=== PATIENT | female | born 1990 | race Caucasian/White ===

== ENCOUNTER 2021-09-16 09:58 | Emergency (ER) | payer SELFPAY ==
[2021-09-16] MEDS ORDERED: Ibuprofen 600 MG Tab PO ONE (10:22)
[2021-09-16 11:27] VITALS: BP 138/105; PULSE 98
== END 2021-09-16 11:31 | disposition home or self-care (01) ==
LOC: MW.ED 09:58
DX: S52.502A Unspecified fracture of the lower end of left radius, initial encounter for closed fracture (principal); Z88.1 Allergy status to other antibiotic agents; Z72.0 Tobacco use; Z86.16 Personal history of COVID-19; W08.XXXA Fall from other furniture, initial encounter
CPT/HCPCS: 29125; 73110; 99283; A9270

== ENCOUNTER 2022-03-15 22:46 | Emergency (ER) | payer OTHER ==
[2022-03-15 23:56] VITALS: BP 137/81; PULSE 98
== END 2022-03-15 23:55 ==
LOC: MW.ED 22:46
DX: S01.80XA Unspecified open wound of other part of head, initial encounter (principal); Z88.1 Allergy status to other antibiotic agents; Z79.899 Other long term (current) drug therapy; V49.40XA Driver injured in collision with unspecified motor vehicles in traffic accident, initial encounter; Y92.410 Unspecified street and highway as the place of occurrence of the external cause
CPT/HCPCS: 70450; 70450-26; 99284-25

== ENCOUNTER 2022-03-16 12:30 | Emergency (ER) | payer OTHER ==
[2022-03-16] MEDS ORDERED: Diphtheria,Pertussis(Acell),Tetanus Vaccine 0.5 ML Syringe IM ONE (12:46)
[2022-03-16 14:19] VITALS: BP 124/80; PULSE 72
== END 2022-03-16 14:17 | disposition home or self-care (01) ==
LOC: MW.ED 12:30
DX: S62.232A Other displaced fracture of base of first metacarpal bone, left hand, initial encounter for closed fracture (principal); V89.2XXA Person injured in unspecified motor-vehicle accident, traffic, initial encounter; Z23 Encounter for immunization
CPT/HCPCS: 29126; 71046; 71046-26; 73110-26-RT; 73110-RT; 73140-26-FA; 73140-FA; 90471; 90715; 99284-25

== ENCOUNTER 2023-02-08 15:30 | Emergency (ER) | payer BC ==
[2023-02-08 16:21] LABS: BASOPHILS PERCENT AUTO 0.4 % (0.0-1.5); EOSINOPHILS ABSOLUTE AUTO 0.2 K/uL (0.0-0.7); EOSINOPHILS PERCENT AUTO 2.1 % (0.0-7.0); HEMATOCRIT 41.6 % (36.0-46.0); HEMOGLOBIN 13.7 g/dL (12.0-16.0); LYMPHOCYTES PERCENT AUTO 19.8 % (16.0-40.0); MEAN CORPUSCULAR HEMOGLOBIN 30.2 pg (27.0-32.0); MEAN CORPUSCULAR HGB CONC 32.9 g/dL (31.0-37.0); MEAN CORPUSCULAR VOLUME 91.6 fL (80.0-98.0); MONOCYTES PERCENT AUTO 10.1 % (0.0-15.0); NEUTROPHILS ABSOLUTE AUTO 6.8 K/uL (1.4-5.7); NEUTROPHILS PERCENT AUTO 67.6 % (48.0-80.0); NRBC ABSOLUTE 0 K/uL; PLATELET COUNT,PLT 404 K/uL (150-400); RED BLOOD CELL COUNT 4.54 M/uL (4.30-5.90); WHITE BLOOD CELL COUNT,WBC 10.11 K/uL (4.0-11.0)
[2023-02-08 16:54] LABS: A/G RATIO 1.2 (0.9-1.6); ALBUMIN 4.1 g/dL (3.4-5.0); BILIRUBIN TOTAL 0.2 mg/dL (0.2-1.0); CALCIUM 9.1 mg/dL (8.5-10.1); CARBON DIOXIDE,CO2 24.9 mmol/L (21.0-32.0); CREATININE 0.6 mg/dL (0.6-1.0); EST CRCL DRUG DOSING (CG) 132.11 mL/min; POTASSIUM,K 4.5 mmol/L (3.5-5.1); PROTEIN TOTAL,TP 7.4 g/dL (6.4-8.2)
[2023-02-08 18:14] LABS: BILIRUBIN,URINE NEGATIVE (NEGATIVE); GLUCOSE,URINE NEGATIVE (NEGATIVE); KETONES,URINE NEGATIVE (NEGATIVE); LEUKOCYTE ESTERASE,URINE NEGATIVE (NEGATIVE); NITRITE,URINE NEGATIVE (NEGATIVE); OCCULT BLOOD,URINE SMALL (NEGATIVE); PROTEIN,URINE NEGATIVE (NEGATIVE); UROBILINOGEN,URINE 0.2 EU/dL (<2.0)
[2023-02-08 18:22] LABS: APPEARANCE,URINE CLEAR; COLOR,URINE STRAW; RBC,URINE 0-2 (0-2/HPF); WBC,URINE 0-1 (0-5/HPF)
[2023-02-08 18:23] LABS: AMORPHOUS SEDIMENT,URINE FEW (NEGATIVE); BACTERIA,URINE FEW (NEGATIVE); EPITHELIAL CELLS,URINE FEW (NONE-FEW)
[2023-02-08 18:40] VITALS: BP 118/77; PULSE 79
== END 2023-02-08 18:38 | disposition home or self-care (01) ==
LOC: MW.ED 15:30
DX: O20.9 Hemorrhage in early pregnancy, unspecified (principal); Z3A.01 Less than 8 weeks gestation of pregnancy; Z88.1 Allergy status to other antibiotic agents; Z86.16 Personal history of COVID-19
CPT/HCPCS: 36415; 76817; 76817-26; 80053; 81001; 84702; 85025; 86900; 86901; 99282; 99284

== ENCOUNTER 2023-12-01 18:04 | Emergency (ER) | payer BC ==
[2023-12-01 18:24] VITALS: PULSE 74
[2023-12-01] MEDS: Lidocaine 1% with EPINEPHrine 1:100,000 50 ML MDV INJECT STA (18:45)
[2023-12-01 18:51] VITALS: BP 109/72
== END 2023-12-01 18:50 | disposition home or self-care (01) ==
LOC: MW.ED 18:04
DX: L02.215 Cutaneous abscess of perineum (principal); Z88.8 Allergy status to other drugs, medicaments and biological substances; Z79.899 Other long term (current) drug therapy; Z86.19 Personal history of other infectious and parasitic diseases; Z75.8 Other problems related to medical facilities and other health care
CPT/HCPCS: 10060; 99282-25; 99283